=== PATIENT | male | born 1995 | race Caucasian/White ===

== ENCOUNTER 2021-12-07 17:47 | Emergency (ER) | payer SELFPAY ==
[2021-12-07] MEDS ORDERED: fentaNYL 100 MCG/2 ML INJ IV ONE (19:27)
[2021-12-07] MEDS ORDERED: ONDANSETRON 4 MG/2 ML INJ IV ONE (19:27)
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
[2021-12-07 20:56] VITALS: BP 106/65
== END 2021-12-07 21:05 | disposition home or self-care (01) ==
LOC: ED 17:47
DX: S00.83XA Contusion of other part of head, initial encounter (principal); S40.011A Contusion of right shoulder, initial encounter; S09.90XA Unspecified injury of head, initial encounter; Y08.89XA Assault by other specified means, initial encounter; Y93.89 Activity, other specified; Y92.59 Other trade areas as the place of occurrence of the external cause; Y99.8 Other external cause status
CPT/HCPCS: 70450; 70486; 72125; 73030; 96374; 96375; 99284; J2405; J3010